=== PATIENT | female | born 1960 | race Caucasian/White ===

== ENCOUNTER 2017-06-15 10:56 | Day surgery (SDC) | payer BC ==
[2017-06-15 11:26] LABS: #Eosinphils 0.1 thou/uL (0.0-0.7); #Lymphocytes 1.4 thou/uL (1.20-3.40); #Monocytes 0.8 thou/uL (0.11-0.59); #Neutrophils 10.8 thou/uL (1.40-6.50); %Basophils 0.3 % (0.0-1.0); %Eosinophils 0.4 % (0.0-10.0); %Lymphocytes 10.4 % (21.0-51.0); %Neutrophils 82.9 % (42.0-75.0); Hemoglobin 16.3 g/dL (12.0-16.0); Mean Corpuscular HGB CONC 33.6 g/dL (32.0-36.0); Mean Corpuscular Hemoglobin 29.7 pg (27.0-31.0); Mean Corpuscular Volume 88.3 fl (81.0-99.0); Mean Platelet Volume 7.3 fL (7.4-10.4); Platelet Count 287 thou/uL (130-400); RBC Distribution Width 11.9 % (11.5-14.5); Red Blood Cell (RBC) Count 5.48 mill/uL (4.20-5.40)
[2017-06-15 11:47] LABS: ALT (SGPT) 22 U/L (8-55); AST (SGOT) 24 U/L (5-34); Albumin 4.8 g/dL (3.5-5.0); Alkaline Phosphatase 111 U/L (40-150); Anion Gap 13 mmol/L (10-20); BUN (Urea Nitrogen) 14 mg/dL (9.8-20.1); Bilirubin, Total 0.8 mg/dL (0.2-1.2); Calc. Creatinine Clearance 0 mL/min (70-130); Calcium 9.9 mg/dL (7.8-10.44); Carbon Dioxide 27 mmol/L (22-29); Chloride 104 mmol/L (98-107); Estimated GFR-MDRD 72; Glucose 95 mg/dL (70-105); Lipase 11 U/L (8-78); Protein, Total 7.8 g/dL (6.0-8.3); Sodium 140 mmol/L (136-145)
[2017-06-15 11:47] LABS: Bilirubin Negative (Negative); Blood, Urine Negative (Negative); Clarity CLEAR (Clear); Glucose, Urine (Dipstick) Negative (Negative); Leukocyte Negative (Negative); Nitrite Negative (Negative); Protein, Urine (Dipstick) Negative (Neg-Trace); Specific Gravity, Urine 1.019 (1.002-1.036); Urobilinogen 0.2 mg/dL (0.2-1.0); pH, Urine 7.5 (5.0-9.0)
[2017-06-15] MEDS ORDERED: Scopolamine 1.5 mg/72 hour Patch TOP SCH (14:15)
[2017-06-15] MEDS ORDERED: Morphine 4 MG/ML VIAL ONE (14:20)
[2017-06-15] MEDS ORDERED: Piperacillin/Tazobactam 3.375 GM in Sodium Chloride 0.9% 100 ML IVPB SCH (14:30)
--- NOTE | 2017-06-15 14:41 | CT ---
CT ABDOMEN AND PELVIS WITH CONTRAST: HISTORY: Abdominal pain. Right lower quadrant pain. History of breast cancer. COMPARISON: None. FINDINGS: Lung bases are clear. No pericardial effusion. The appendix contains an appendicolith at its base with multiple appendicolysis within the tip. The appendix is inflamed. Mild mucosal hyperenhancement. The appendix measures up to 12 mm. There are bilateral fallopian tube closure devices. No dilated loops of colon or small bowel. The p ancreas is unremarkable as well as the liver, spleen, and gallbladder. Adrenal glands are unremarkab le. No hydronephrosis. No abnormal renal enhancing mass. 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 IMPRESSION: 1. Acute appendicitis with appendicolith in the appendiceal base as well as multiple appendicoliths within the tip of the appendix. No drainable fluid collection. Moderate inflammatory stranding. 2. Lumbosacral transitional vertebra. Dr. Araiza notified of findings via telephone at 2:02 p.m. CODE CROW POS: HILARY
--- NOTE | 2017-06-15 15:10 | HP ---
HISTORY OF PRESENT ILLNESS: Ana Paula Catherine is a 56-year-old female who presents to the emergency room with right lower quadrant pain. She states she has had some upper abdominal pain for the last several weeks, but more recently became worse last night in right lower quadrant and white count is 1 3,000. Comprehensive metabolic profile is normal. She was evaluated in the emergency room, Dr. Araiza . Abdominal pelvic CAT scan was obtained at noon today revealing acute appendicitis with appendicoli th. Otherwise unremarkable CAT scan. ALLERGIES: None. TOBACCO: None. ALCOHOL: Socially. MEDICATIONS: Levothyroxine, Lipitor, and Ambien. PAST SURGICAL HISTORY: Partial mastectomy right with sentinel node biopsy, postoperative radiation f or right breast cancer, no evidence of disease, currently ovarian cyst removal, and hemorrhoidectomy. PAST MEDICAL HISTORY: Elevated cholesterol, hypothyroidism, history of breast cancer treated with ra diation therapy. REVIEW OF SYSTEMS: Ten point noncontributory. PHYSICAL EXAMINATION: VITAL SIGNS: 76 kgs, respiratory rate 16, 98 degrees, 138/87, 67. HEAD, EYES, EARS, NOSE, AND THROAT: Unremarkable. LUNGS: Clear to auscultation. CARDIAC: Regular rate and rhythm without murmur or gallop. ABDOMEN: Soft, tenderness in right lower quadrant, guarding, rebound. EXTREMITIES: Unremarkable. ASSESSMENT AND PLAN: Acute appendicitis. Recommend laparoscopic video appendectomy. Risk of infect ion, bleeding, reoperation, staple, stump leakage discussed. Questions answered. We will plan lapar oscopic cholecystectomy outpatient in this afternoon.
[2017-06-15] MEDS ORDERED: ISOVUE-370 76%-LOCM 1 ML ONE (16:19)
[2017-06-15] MEDS ORDERED: Ketorolac Tromethamine 30 MG/ML VIAL ONE ×2 (16:24→17:13)
[2017-06-15] MEDS ORDERED: Ondansetron HCl/PF 4 MG/2 ML Vial ONE (17:13)
[2017-06-15] MEDS ORDERED: Dexamethasone 20 MG/5 ML VIAL ONE (17:13)
[2017-06-15] MEDS ORDERED: Glycopyrrolate 0.2 MG/ML 5 ML SYRINGE ONE (17:13)
[2017-06-15] MEDS ORDERED: Propofol 200 MG/20 ML VIAL ONE (17:13)
[2017-06-15] MEDS ORDERED: Lidocaine 1% PF 5 ML VIAL ONE (17:13)
[2017-06-15] MEDS ORDERED: Bupivacaine HCl 0.5%/Epinephrine 1:200,000/PF 30 ml Vial ONE (17:29)
[2017-06-15] MEDS ORDERED: Fentanyl 250 MCG/5 ML VIAL ONE (19:36)
--- NOTE | 2017-06-15 22:26 | OP ---
POSTOPERATIVE DIAGNOSIS: Acute appendicitis. PROCEDURE: Laparoscopic video appendectomy. SURGEON: Francisco Mccallum M.D. ANESTHESIA: General. Local 0.5% Marcaine with epinephrine, 30 mL PROCEDURE IN DETAIL: The patient was taken to the operating room where under anesthesia, Marie ivan ter placed at the beginning of the procedure and removed at the end. Abdomen was clipped of hair, pr epared with ChloraPrep, draped in routine fashion. Local anesthetic mixture infiltrated into skin an d subcutaneous tissue about all port sites. Infraumbilical incision made and pneumoperitoneum to 15 mmHg obtained with the Veress needle, replacing it with a 5 port. Bilateral subcostal incision made and a [address] Suprapubic incision made and a 12 port placed. Appendix taken down with the Lig aSure. The stump of the appendix was noted to be acutely inflamed. The stump of the appendix divide d the cecal stump with Endo blue load stapler. Appendix removed and submitted to Pathology. Hemosta sis in the staple line achieved with clip application and hemostasis gained with LigaSure. Irrigant and pneumoperitoneum evacuated. All this instruments removed and suprapubic fascia approximated with 0 Vicryl. All skin incisions approximated with interrupted subdermal 4-0 Monocryl. Sammi quintero ed.
== END 2017-06-15 22:18 | disposition home or self-care (01) ==
LOC: ERS 10:56 → SDC/OP 15:10
PROVIDERS: ATTEND Specialist
PROC: 0DTJ4ZZ Resection of Appendix, Percutaneous Endoscopic Approach (ICD-10-PCS; principal; 2017-06-15)
DX: K35.80 Unspecified acute appendicitis (principal); E03.9 Hypothyroidism, unspecified; E78.00 Pure hypercholesterolemia, unspecified; Z85.3 Personal history of malignant neoplasm of breast; Z92.3 Personal history of irradiation; Z79.899 Other long term (current) drug therapy
CPT/HCPCS: 36415; 74177; 80053; 81003; 83690; 85025; 88304; 93005; 96365; 96375; J0131; J0670; J1100; J1885; J2001; J2270; J2405; J2543; J2704; J3010; J7050

== ENCOUNTER 2017-10-26 16:02 | Outpatient (CLI) | payer BC | END 2017-10-26 16:03 | disposition home or self-care (01) | LOC: BICMAMMO 16:02 | PROVIDERS: ATTEND Obstetrics & Gynecology | DX: Z12.31 Encounter for screening mammogram for malignant neoplasm of breast (principal); Z85.3 Personal history of malignant neoplasm of breast; Z80.3 Family history of malignant neoplasm of breast | CPT/HCPCS: 77063; 77067 ==

== ENCOUNTER 2022-12-14 12:11 | Outpatient (CLI) | payer OTHER | END 2022-12-14 12:12 | disposition home or self-care (01) | LOC: RAD 12:11 | PROVIDERS: ATTEND Nurse Practitioner Family | DX: R06.02 Shortness of breath (principal) | CPT/HCPCS: 71046 ==

== ENCOUNTER 2023-06-01 14:34 | Outpatient (CLI) | payer OTHER | END 2023-06-01 14:35 | disposition home or self-care (01) | LOC: RAD 14:34 | PROVIDERS: ATTEND Nurse Practitioner Family | DX: S59.902A Unspecified injury of left elbow, initial encounter (principal); M25.422 Effusion, left elbow ==

== ENCOUNTER 2024-02-17 12:19 | Outpatient (CLI) | payer OTHER | END 2024-02-17 12:20 | disposition home or self-care (01) | LOC: RAD 12:19 | PROVIDERS: ATTEND Nurse Practitioner Family | DX: S69.91XA Unspecified injury of right wrist, hand and finger(s), initial encounter (principal) ==